=== PATIENT | female | born 1965 | race African-American/Black ===

== ENCOUNTER 2017-08-26 20:09 | Emergency (ER) | payer OTHER ==
[~2017-08-26] VITALS: Ht 170.2 cm; Wt 86.2 kg
[~2017-08-26 20:09] MED LIST: AMLO2.5T PO; BENZ100 PO; ZITHTAB PO
[2017-08-26 20:11] VITALS: BP 155/80; PULSE 83; RESP 18; TEMP 98.1; O2SAT 100
[2017-08-26] MEDS ORDERED: PRED1 PO (20:26)
[2017-08-26] MEDS ORDERED: SILVER SULFADIAZINE 1% CR 400 GM JAR TOPICAL ONE (20:30)
[2017-08-26] MEDS ORDERED: traMADol HCL 50 MG TAB PO ONE (20:30)
[2017-08-26] MEDS ORDERED: PHEN-556 PO (20:30)
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
[2017-08-26] MEDS ORDERED: SILVER SULFADIAZINE 1% CR 50 GM JAR TOPICAL ONE (20:45)
== END 2017-08-26 21:00 | disposition home or self-care (01) ==
LOC: PHEFT 20:09
DX: T25.121A Burn of first degree of right foot, initial encounter (principal); I10 Essential (primary) hypertension; X12.XXXA Contact with other hot fluids, initial encounter; Y92.009 Unspecified place in unspecified non-institutional (private) residence as the place of occurrence of the external cause
CPT/HCPCS: 16000